=== PATIENT | female | born 1940 | race Caucasian/White ===

== ENCOUNTER 2018-09-05 21:41 | Emergency (ER) | payer SELFPAY ==
[~2018-09-05] VITALS: Ht 157.5 cm; Wt 77.1 kg
--- NOTE | 2018-09-05 21:41 | NUR ---
STEPHANIE BOLAÑOS, PREBOOK. TAKEN TO CHAIR E
[2018-09-05 21:46] VITALS: BP 164/89
--- NOTE | 2018-09-05 21:51 | NUR ---
Dr. Schuler evaluating patient
[2018-09-05 22:01] VITALS: BP 164/89
--- NOTE | 2018-09-05 22:01 | NUR ---
Patient discharged with v/s stable. Written and verbal after care instructions given and explained. Patient verbalized understanding. Escorted by [place] [employer] in custody. All questions addressed prior to discharge. Advised to follow up with PMD.
== END 2018-09-05 22:01 ==
LOC: MED 21:41
DX: E11.9 Type 2 diabetes mellitus without complications (principal); Z88.8 Allergy status to other drugs, medicaments and biological substances; Z02.89 Encounter for other administrative examinations
CPT/HCPCS: 99283